=== PATIENT | female | born 1985 | race Caucasian/White ===

== ENCOUNTER 2016-08-18 15:25 | Emergency (ER) | payer MEDICAID, OTHER ==
[~2016-08-18] VITALS: Wt 70.0 kg
[2016-08-18 17:17] LABS: URINE BLOOD (Dip) POC Negative (NEGATIVE)
[2016-08-18] MEDS ORDERED: ACETAMINOPHEN/CODEINE #3 TAB PO ONE (17:30)
[2016-08-18] MEDS ORDERED: FAMOTIDINE 20 MG TAB PO ONE (17:30)
[2016-08-18] MEDS ORDERED: LIDOCAINE/MYLANTA 40 ML BTL PO ONE (17:30)
[2016-08-18 17:31] LABS: ADD UMIC YES; URINE BILIRUBIN (Dip) NEGATIVE (NEGATIVE); URINE BLOOD (Dip) NEGATIVE (NEGATIVE); URINE COLOR LT. YELLOW (YELLOW); URINE GLUCOSE (Dip) NEGATIVE (NEGATIVE); URINE KETONES (Dip) NEGATIVE (NEGATIVE); URINE LEUKOCYTE ESTERASE (Dip) TRACE (NEGATIVE); URINE NITRITE (Dip) NEGATIVE (NEGATIVE); URINE TOTAL PROTEIN (Dip) NEGATIVE (NEGATIVE); URINE UROBILINOGEN (Dip) 0.2 E.U./dL (0.1-1.0)
[2016-08-18 17:42] LABS: URINE RBCS 0-2 /HPF (0)
[2016-08-18 17:43] LABS: BACTERIA,URINE FEW
--- NOTE | 2016-08-18 18:19 | RADRPT ---
PROCEDURE: Abdominal Ultrasound (right upper quadrant). CLINICAL INDICATION: Abdominal pain TECHNIQUE: Multiple real-time longitudinal and transverse images of the right upper quadrant of th e abdomen were acquired utilizing a curved array transducer. Images were reviewed on a high-resoluti on PACS workstation. COMPARISON: None FINDINGS: The liver demonstrates increased echogenicity consistent with fatty infiltration. The liver is norm al in size. No focal masses are identified. There is no evidence of intra or extrahepatic ductal d ilatation. The common bile duct measures 2.7 mm in diameter. There is a nonshadowing gallstone vers us sludge ball identified within the gallbladder. There is no gallbladder wall thickening. No martha cholecystic fluid is identified The visualized portions of the pancreas are unremarkable with obscuration of the tail of the pancrea s. No free fluid is identified. There is no evidence of right hydronephrosis or renal calcification. The right kidney measures 10 p oint a cm in length. The visualized portions of the aorta and inferior vena cava are within normal limits. IMPRESSION: 1. Fatty infiltration of the liver. 2. Small nonshadowing gallstone versus sludge ball. No gallbladder wall thickening. 3. Otherwise unremarkable right upper quadrant ultrasound. RPTAT: HJBF .Carson Alexander MD, Date Time Electronically viewed and signed by .Carson Alexander MD, MD on 08/18/2016 18:19 .B/
[2016-08-18 18:25] LABS: HEMATOCRIT 37.2 % (37.0-47.0); HEMOGLOBIN 12.5 g/dl (12.0-16.0); MEAN CORPUSCULAR HEMOGLOBIN 29.4 pg (29.0-33.0); MEAN CORPUSCULAR HGB CONC 33.6 g/dl (32.0-37.0); MEAN CORPUSCULAR VOLUME 87.5 fl (82.0-101.0); MEAN PLATELET VOLUME 7.5 fl (7.4-10.4); PLATELET COUNT 310 10^3/UL (140-440); RED BLOOD COUNT 4.25 10^6/ul (4.20-5.40); RED CELL DISTRIBUTION WIDTH 12.7 % (11.5-14.5); UNCORRECTED WBC 13.3 10^3/ul (4.8-10.8); WHITE BLOOD COUNT 13.3 10^3/ul (4.8-10.8)
[2016-08-18 18:40] LABS: CONDITION 1; LH ANALYZER COMMENTS 1; SUSPECT 1
[2016-08-18 18:44] LABS: ALBUMIN 4.2 g/dl (3.3-4.9)
[2016-08-18 18:47] LABS: ALBUMIN/GLOBULIN RATIO 1.16; BILIRUBIN,INDIRECT 0.2 mg/dl (0-1.1); BILIRUBIN,TOTAL 0.2 mg/dl (0.2-1.3); CREATININE 0.54 mg/dl (0.44-1.00); TOTAL PROTEIN 7.8 g/dl (6.1-8.1)
[2016-08-18 18:48] LABS: CALCIUM 8.8 mg/dl (8.4-10.2)
[2016-08-18] MEDS ORDERED: ACET1TAB40 PO (18:55)
[2016-08-18] MEDS ORDERED: FAMO-18 PO (18:55)
--- NOTE | 2016-08-18 18:58 | ERD ---
ER Documentation Chief Complaint Date/Time DATE: 08/18/16 TIME: 18:56 Chief Complaint LOWER ABD PAIN FOR THE PAST DAY. NAUSEA NO VOMITNG HPI This 31-year-old female presents with epigastric abdominal pain for last day. History is significant for excision of presumed lipoma on her back 4 days ago. She is taking ibuprofen at home. The pain is in the epigastric area. She has nausea but no vomiting, no fevers, blood. She denies any lower abdominal pain. She has no urinary complaints. ROS All systems reviewed and are negative except as per history of present illness. Medications Home Meds Active Scripts Acetaminophen with Codeine (Acetaminophen-Cod #3 Tablet) 1 Each Tablet, 1 TAB PO Q6H Y for PAIN, #10 TAB Prov:BEN JIMENEZ MD 08/18/16 Famotidine* (Pepcid*) 20 Mg Tablet, 20 MG PO BID for 10 Days, #20 TAB Prov:BEN JIMENEZ MD 08/18/16 PMhx/Soc Medical and Surgical Hx: pt denies Medical Hx History of Surgery: Yes (BACK) Hx Alcohol Use: No Hx Substance Use: No Hx Tobacco Use: No Smoking Status: Never smoker Physical Exam Vitals Vital Signs Date Time Temp Pulse Resp B/P Pulse Ox O2 Delivery O2 Flow Rate FiO2 08/18/16 15:28 98.4 88 20 127/88 98 Physical Exam Const: [] Alert, aus-ogp-syvaflxmo. Head: Atraumatic Eyes: Normal Conjunctiva ENT: Normal External Ears, Nose and Mouth. Neck: Full range of motion..~ No meningismus. Resp: Clear to auscultation bilaterally Cardio: Regular rate and rhythm, no murmurs Abd: Soft, mild epigastric tenderness. No exquisite Domingo sign and no tenderness at McBurney's point. No rebound., non distended. Normal bowel sounds Skin: No petechiae or rashes Back: No midline or flank tenderness Ext: No cyanosis, or edema Neur: Awake and alert Psych: Normal Mood and Affect Result Diagram: 08/18/16 1800 08/18/16 1800 Results 24 hrs Laboratory Tests Test 08/18/16 17:15 08/18/16 17:18 08/18/16 18:00 Urine Bacteria FEW Urine Bilirubin NEGATIVE Urine Clarity CLEAR Urine Color LT. YELLOW Urine Epithelial Cells FEW Urine Glucose NEGATIVE% Urine Hemoglobin NEGATIVE Urine Ketones NEGATIVE Urine Leukocyte Esterase TRACE Urine Microscopic RBC 0-2/HPF Urine Microscopic WBC 5-10/HPF Urine Nitrite NEGATIVE Urine Specific [place] <=1.005 Urine Total Protein NEGATIVE Urine Urobilinogen 0.2 E.U./dL Urine pH 7.0 Bedside Urine Blood Negative Bedside Urine Glucose (UA) Negative Bedside Urine Ketones (LAB) Negative Bedside Urine Leukocyte Esterase (L Negative Bedside Urine Nitrite (LAB) Negative Bedside Urine Protein (LAB) 1+ Bedside Urine pH (LAB) 5.5 Alanine Aminotransferase (ALT/SGPT) 35IU/L Albumin 4.2g/dl Albumin/Globulin Ratio 1.16 Alkaline Phosphatase 66IU/L Anion Gap 15 Aspartate Amino Transf (AST/SGOT) 20IU/L Blood Urea Nitrogen 10mg/dl Calcium Level 8.8mg/dl Carbon Dioxide Level 30mmol/L Chloride Level 102mmol/L Creatinine 0.54mg/dl Direct Bilirubin 0.00mg/dl Globulin 3.60g/dl Glucose Level 87mg/dl Hematocrit 37.2% Hemoglobin 12.5g/dl Indirect Bilirubin 0.2mg/dl Lipase 112U/L Mean Corpuscular Hemoglobin 29.4pg Mean Corpuscular Hemoglobin Concent 33.6g/dl Mean Corpuscular Volume 87.5fl Mean Platelet Volume 7.5fl Platelet Count 63136^3/UL Potassium Level 4.0mmol/L Red Blood Count 4.2510^6/ul Red Cell Distribution Width 12.7% Sodium Level 143mmol/L Total Bilirubin 0.2mg/dl Total Protein 7.8g/dl White Blood Count 13.310^3/ul Current Medications Medications (Trade) Dose Ordered Sig/Kaz Route PRN Reason Start Time Stop Time Status Last Admin Dose Admin Miscellaneous Medication (Gi Cocktail (2)) 40 ml ONCE ONCE PO 08/18/16 17:30 08/18/16 17:31 DC 08/18/16 18:09 Famotidine (Pepcid) 20 mg ONCE ONCE PO 08/18/16 17:30 08/18/16 17:31 DC 08/18/16 18:09 Acetaminophen/ Codeine Phosphate (Tylenol No.3) 1 tab ONCE ONCE PO 08/18/16 17:30 08/18/16 17:31 DC 08/18/16 18:09 Procedures/MDM CBC shows a white blood cell count of 13. No evidence of anemia. CMP and lipase are normal. Urine is negative for infection, nitrites, glucose, hemoglobin. HCG is negative. Right upper quadrant ultrasound shows possible solitary gallstone without evidence of obstruction or cholecystitis. Patient was given Pepcid 20 mg by mouth GI cocktail. Patient had minimal tenderness on serial exam without rebound, Domingo sign or McBurney's point. Patient presents with epigastric abdominal pain with a history of taking NSAIDs for last 3 days. Believe she likely has NSAID gastritis. There is no evidence of cholecystitis , obstruction. She does have possibly a single solitary gallstone and may have colic symptoms are not definitely characteristic of biliary colic. There is no evidence to suggest appendicitis, UTI. Patient should follow-up with primary doctor this week return to the ER for new or worsening symptoms. Departure Diagnosis: Primary Impression: Gastritis Gastritis type: unspecified gastritis Chronicity: acute Gastritis bleeding : without bleeding Qualified Code: K29.00 - Acute gastritis without hemorrhage, unspecified gastritis type Additional Impression: Abdominal pain Abdominal location: epigastric Qualified Code: R10.13 - Epigastric pain Condition: Stable Patient Instructions: Abdominal Pain, Gallstones, Gastritis (Adult) Additional Instructions: tiene un aftab en vesicula. armando posiblemente gastritis. no sher ibuprofen. ramon y Examines normal hoy. Cheque otro vez con kang doctor primario en el proximo mitchell or regresa para mas o nueva simptomas. BEN JIMENEZ MD Aug 18, 2016 18:58
[2016-08-18 19:06] VITALS: BP 115/69; PULSE 69; RESP 16
[2016-08-18 19:45] LABS: EOSINOPHILS # 2.4 10^3/ul (0.0-0.5); LYMPHOCYTES # 2.9 10^3/ul (0.8-2.9); MONOCYTE # 0.3 10^3/ul (0.3-0.9); NEUTROPHIL # 7.7 10^3/ul (1.6-7.5)
[2016-08-18 19:46] LABS: PLATELET ESTIMATE PLT APPEAR ADEQUATE
== END 2016-08-18 19:07 | disposition home or self-care (01) ==
LOC: FTE 15:25
DX: K29.00 Acute gastritis without bleeding (principal)
CPT/HCPCS: 36415; 76705; 80053; 81001; 83690; 85025; Z7502; Z7610; 81003

== ENCOUNTER 2016-12-02 12:18 | Emergency (ER) | payer MEDICAID ==
[~2016-12-02] VITALS: Ht 160 cm; Wt 66.5 kg
[~2016-12-02 12:18] MED LIST: ACET1TAB40 PO; FAMO-18 PO
[2016-12-02 12:25] VITALS: Ht 160 cm; Wt 66.5 kg
[2016-12-02] MEDS ORDERED: ACETAMINOPHEN 500 MG TAB PO STA (12:45)
--- NOTE | 2016-12-02 13:18 | RADRPT ---
PROCEDURE: US OB. CLINICAL INDICATION: Fever, 12 weeks . TECHNIQUE: Transabdominal and transvaginal views of the pelvis are available for review. COMPARISON: No prior studies are available for comparison. FINDINGS: There is a single living intrauterine gestation with visualization of an intrauterine gestational sa c fetus with active cardiac activity at 185 beats per minute. The mean crown-rump length is 6.23 cm consistent with 05-nqas-7-day gestation. There are no abnormal fluid collections identified. Righ t ovary measures 3.5 x 1.7 x 2.3 cm. Left ovary measures 4.1 x 1.6 x 2.6 cm. There are no adnexal masses or free fluid seen in the cul-de-sac. IMPRESSION: 1. Single living intrauterine gestation with a mean gestational age by off of 12 weeks 4 days plus o r minus 8 days with an estimated date of delivery of 06/12/2017.. RPTAT: AACC Physician Josse Date Time Electronically viewed and signed by Physician Josse on 12/02/2016 13:17 /
[2016-12-02 13:38] LABS: ADD UMIC YES; URINE BILIRUBIN (Dip) NEGATIVE (NEGATIVE); URINE BLOOD (Dip) 2+ (NEGATIVE); URINE COLOR LT. YELLOW (YELLOW); URINE KETONES (Dip) NEGATIVE (NEGATIVE); URINE LEUKOCYTE ESTERASE (Dip) TRACE (NEGATIVE); URINE NITRITE (Dip) NEGATIVE (NEGATIVE); URINE TOTAL PROTEIN (Dip) NEGATIVE (NEGATIVE); URINE UROBILINOGEN (Dip) 0.2 E.U./dL (0.1-1.0)
[2016-12-02 14:26] LABS: BACTERIA,URINE FEW
[2016-12-02] MEDS ORDERED: PEN500 PO (14:30)
[2016-12-02] MEDS ORDERED: ACET500C5 PO (14:30)
--- NOTE | 2016-12-02 14:45 | ERD ---
ER Documentation Chief Complaint Date/Time DATE: 12/02/16 TIME: 14:40 Chief Complaint FEVER WITH CHILLS SINCE YESTERDAY 12 WEEKS HPI 31-year-old female who is approximately 12 weeks complaining of fever and chills since yesterday. Patient also reports body ache and headache. She has slight sore throat and decreased appetite. Denies cough or runny nose. Denies shortness of breath. Denies dysuria. Denies vaginal bleeding or pelvic. She did not take any medications at home. ROS All systems reviewed and are negative except as per history of present illness. Medications Home Meds Active Scripts Penicillin V Potassium* (Penicillin V K*) 500 Mg Tab, 500 MG PO BID for 10 Days , TAB Prov:GRIFFIN LEVY STEAM SHOVELMAN 12/02/16 Acetaminophen* (Tylophen*) 500 Mg Capsule, 1 CAP PO Q6H Y for PAIN AND OR ELEVATED TEMP, #20 CAP Prov:GRIFFIN LEVY STEAM SHOVELMAN 12/02/16 Acetaminophen with Codeine (Acetaminophen-Cod #3 Tablet) 1 Each Tablet, 1 TAB PO Q6H Y for PAIN, #10 TAB Prov:BEN JIMENEZ MD 08/18/16 Famotidine* (Pepcid*) 20 Mg Tablet, 20 MG PO BID for 10 Days, #20 TAB Prov:BEN JIMENEZ MD 08/18/16 Allergies Allergies: Coded Allergies: No Known Allergy (Unverified , 12/02/16) PMhx/Soc Medical and Surgical Hx: pt denies Medical Hx History of Surgery: Yes (BACK) Hx Alcohol Use: No Hx Substance Use: No Hx Tobacco Use: No Smoking Status: Never smoker Physical Exam Vitals Vital Signs Date Time Temp Pulse Resp B/P Pulse Ox O2 Delivery O2 Flow Rate FiO2 12/02/16 12:25 101.7 137 20 121/70 98 Physical Exam General: Well-developed, well-nourished, conscious and coherent, in no distress Skin: Warm and dry without rash, good texture and turgor Head: Normocephalic without evidence of trauma Eyes: Sclera and conjunctivae normal; pupils equal, round, and reactive to light; extraocular movements are intact Ears: Canals are patent. Tympanic membranes are clear Nose/Face: Without rhinorrhea Mouth/throat: Mucous membranes are moist. Posterior pharynx swollen and erythematous without exudate Neck: Supple without meningismus or adenopathy. Carotids are equal. Trachea midline. No bruits or JVD Chest: Normal AP diameter. Good expansion without retractions. Nontender. Lungs are clear to auscultate bilaterally with good tidal volume Heart: Regular rate and rhythm. No murmur, rub, or gallops heard Abdomen: Soft and nontender without masses, guarding, or rebound. Bowel sounds are active. No hepatosplenomegaly Back: Without spinal or CVA tenderness Pelvis: Nontender to palpation and stable to compression Extremities: Full range of motion. Good strength bilaterally. No clubbing, cyanosis, or edema. Peripheral pulses are intact. Sensation intact Neuro: Alert and oriented 4, GCS 15. Cranial nerves II-XII intact. Motor and sensory exams nonfocal. Moves all extremities. Speech clear. Gait normal Results 24 hrs Laboratory Tests Test 12/02/16 13:10 Urine Color LT. YELLOW Urine Clarity CLEAR Urine pH 5.5 Urine Specific [place] <=1.005 Urine Ketones NEGATIVE Urine Nitrite NEGATIVE Urine Bilirubin NEGATIVE Urine Urobilinogen 0.2 E.U./dL Urine Leukocyte Esterase TRACE Urine Microscopic RBC 2-5/HPF Urine Microscopic WBC 2-5/HPF Urine Epithelial Cells MODERATE Urine Bacteria FEW Urine Hemoglobin 2+ Urine Glucose 0.5%% Urine Total Protein NEGATIVE Current Medications Medications (Trade) Dose Ordered Sig/Kaz Route PRN Reason Start Time Stop Time Status Last Admin Dose Admin Acetaminophen (Tylenol Tab) 1,000 mg ONCE STAT PO 12/02/16 12:45 12/02/16 12:48 DC 12/02/16 12:49 PROCEDURE: US OB. CLINICAL INDICATION: Fever, 12 weeks . TECHNIQUE: Transabdominal and transvaginal views of the pelvis are available for review. COMPARISON: No prior studies are available for comparison. FINDINGS: There is a single living intrauterine gestation with visualization of an intrauterine gestational sac fetus with active cardiac activity at 185 beats per minute. The mean crown-rump length is 6.23 cm consistent with 12-week-4- day gestation. There are no abnormal fluid collections identified. Right ovary measures 3.5 x 1.7 x 2.3 cm. Left ovary measures 4.1 x 1.6 x 2.6 cm. There are no adnexal masses or free fluid seen in the cul-de-sac. IMPRESSION: 1. Single living intrauterine gestation with a mean gestational age by off of 12 weeks 4 days plus or minus 8 days with an estimated date of delivery of 06/12.. RPTAT: AACC Benny Blanco Physician Date Time Electronically viewed and signed by Benny Blanco Physician on 12/02/2016 13: 17 JH/ CC: GRIFFIN LEVY STEAM SHOVELMAN Procedures/MDM 31-year-old female presented ED with fever 2 days. Tylenol given to the patient in the ED for fever reduction. Patient reports feeling better after Tylenol. Rapid strep test is positive. Patient symptoms and exam findings are consistent with strep pharyngitis. UA showed trace leukocyte, negative nitrite, 2+ blood, and positive glucose. Since patient does not have any dysuria, I opted not to treat her for UTI at this time. Patient is concerned about her , OB ultrasound was obtained. OB ultrasound showed normal intrauterine at 12 weeks 4 days, normal cardiac activity at 1 85 bpm. Patient appears well, stable for discharge and outpatient management. Medical decision making shared with patient and family. Education provided to patient and family. Patient and family expressed understanding of the plan. Medications on discharge: Tylenol, Pen-Vee K. Follow-up: Primary care provider in 2-3 days or return to ED if worse. Departure Diagnosis: Primary Impression: Strep pharyngitis Condition: Good Patient Instructions: Pharyngitis, Strep (Confirmed) Referrals: [place] [address] [facility] [address] [place] [id number]AB[address] [facility] [address] [place] [address] DR. PICKARDFORMERLY [facility] [address] [place], [place] [id number] DR PRADO [facility] [address] [facility], [address], [place] [address] DR OLIVAS-DECALN WARD [address] [facility], [place] [address] [address] [place] [address] [place] [address] [facility] [id number] - LIDIA J[address] [facility] [address] [address] [place], JAMIL [address] [facility], [facility] [address] [address] [place]ODES, MARIA [place] [address] [place] [address] [facility] () Usted se osborne hecho un examen mdico de control que le indica que no est en kirt condicin que requiera tratamiento urgente en el Departamento de Emergencia. Un estudio ms profundo y el tratamiento de kang condicin pueden esperar sin ningn riesgo hasta que usted sea atendida/o en el consultorio de kang mdico o kirt cl vero. Es responsabilidad suya arreglar kirt som para el seguimiento del renetta. MANEJO DE CONDICIONES NO URGENTES EN EL FUTURO 1) Si usted tiene un mdico de atencin primaria: Usted debera llamar a kang mdico de atencin primaria antes de venir al departamento de emergencia. Despus de las horas de consultorio, kang doctor o kang asociado/a est disponible por telfono. El mdico o enfermero de jasmyne en el servicio telefnico puede asesorarle por kimberly medio para atender el problema, o renetta contrario se puede programar kirt som. 2) Si usted no tiene un mdico de atencin primaria: Llame al mdico o clnica de referencia que aparece abajo andry las horas de consultorio para hacer kirt som para que le vean. CLINICAS: [facility] [phone] [facility] [phone] [facility] [phone] [place] [address] [phone] [place] [address] [phone] [place] [id number] [phone] Additional Instructions: Llame al doctor MAANA y crystal kirt SOM PARA DENTRO DE 2-3 HERNADEZ.Dgale a la secretaria que nosotros le instruimos hacer esta som.Avise o llame si kang condicin se empeora antes de la som. Regresa aqui si peor o no mejor. GRIFFIN LEVY NP December 02, 2016 14:45
== END 2016-12-02 14:46 | disposition home or self-care (01) ==
LOC: FTE 12:18
DX: O99.511 Diseases of the respiratory system complicating pregnancy, first trimester (principal); R50.9 Fever, unspecified; J02.0 Streptococcal pharyngitis; Z3A.12 12 weeks gestation of pregnancy
CPT/HCPCS: 76801; 81001; 87880; Z7502; Z7610; 81003

== ENCOUNTER 2017-06-11 08:26 | Inpatient (IN) | payer MEDICAID ==
[~2017-06-11] VITALS: Ht 154.9 cm; Wt 75.3 kg
[~2017-06-11 08:26] MED LIST changes: +ACET500C5 PO; -FAMO-18 PO; +FAMO-96 PO; +PENI500T PO
[2017-06-11] MEDS ORDERED: PREN-93 PO (08:35)
[2017-06-11 08:43] VITALS: BP 126/79; PULSE 96; RESP 18
[2017-06-11 08:44] VITALS: Ht 154.9 cm; Wt 75.3 kg
--- NOTE | 2017-06-11 08:59 | TRIAGE ---
OB Triage Datetime Report Generated by CPN: 06/11/2017 08:59 Datetime: 06/11/2017 08:47 Vaginal Exam Dilatation (cms): 4.0 Effacement (%): 80 Station: -2 Exam By: josiah Vaginal Bleeding: Normal Show Cervix, Consistency: Soft Cervix, Position: Midposition Datetime: 06/11/2017 08:33 Assessment Type: Triage Maternal Assessment Level of Consciousness: Fully Conscious DTR's/Clonus: DTRs 2+; No Clonus Headache: Denies Blurred Vision: No Respiratory Effort: Unlabored; Regular Rhythm; Equal Expansion Breath Sounds, Left: Clear and Equal Breath Sounds, Right: Clear and Equal Nausea/Vomiting: Denies RUQ Epigastric Pain: Denies Lower Extremities Edema: None Degree: None Upper Extremities Edema: None Degree: None Facial Edema: None Fall Risk Assessment History of Falling: (0) No Secondary Diagnosis: (0) No Ambulatory Aid: (0) Bedrest/Nurse Assist IV Therapy: (0) No Gait: (0) Normal/Bedrest/Immobile Mental Status: (0) Oriented to Own Ability Fall Score: 0 Fall Risk Score Definition: No Risk: No action required Datetime: 06/11/2017 08:32 Time of Arrival: 06/11/2017 08:15 EGA: 39.5 Arrived By: Ambulatory Arrived From: Home Chief Complaint: PT HERE C/O UC'S SINCE 2300 LAST NIGHT Movement: Present Contractions: Irregular Rupture of Membranes: Denies Vaginal Bleeding: None Vaginal Discharge: Denies Recent Sexual Intercouse: Denies Abdominal Trauma: Not Applicable Patient Complaints: Contractions; Cramping; Back Pain Time Provider Notified: 06/11/2017 08:53 Provider Notified: ESHAGHIAN Initial Plan: EFM/SVE Datetime: 06/11/2017 08:30 Labor Evaluation Monitor Mode: External Heart Rate Monitor Mode: External US
[2017-06-11] MEDS ORDERED: LACTATED RINGER'S 1,000 ML IV PRN (10:06)
[2017-06-11] MEDS: LACTATED RINGER'S 1,000 ML IV SCH ×3 (10:16→19:03)
[2017-06-11] MEDS ORDERED: OXYTOCIN 30 UNITS/LR 500 ML IV PRN (10:30)
[2017-06-11] MEDS ORDERED: METHYLERGONOVINE 0.2 MG INJ IM PRN (10:30)
[2017-06-11] MEDS ORDERED: CARBOPROST 250 MCG INJ IM PRN (10:30)
[2017-06-11] MEDS ORDERED: OXYTOCIN 30 UNITS/LR 500 ML IV SCH ×3 (10:30→21:30)
[2017-06-11] MEDS ORDERED: IBUPROFEN 600 MG TAB PO PRN (10:30)
[2017-06-11] MEDS ORDERED: AMPICILLIN 2 GM/NS (PMX) 100 ML IV ONE (10:30)
[2017-06-11] MEDS ORDERED: LIDOCAINE 1% (MPF) 30 ML INJ INJ PRN (10:30)
[2017-06-11] MEDS ORDERED: MISOPROSTOL 200 MCG TAB PR PRN (10:30)
[2017-06-11] MEDS ORDERED: BUTORPHANOL 2 MG INJ IV PRN (10:30)
[2017-06-11 10:31] LABS: BASOPHILS % 0.2 % (0.0-2.0); EOSINOPHILS # 0.1 10^3/ul (0.0-0.5); EOSINOPHILS % 0.7 % (0.0-7.0); HEMATOCRIT 35.8 % (37.0-47.0); HEMOGLOBIN 11.8 g/dl (12.0-16.0); LYMPHOCYTES # 1.6 10^3/ul (0.8-2.9); MEAN CORPUSCULAR HEMOGLOBIN 28.6 pg (29.0-33.0); MEAN CORPUSCULAR VOLUME 86.7 fl (82.0-101.0); MEAN PLATELET VOLUME 11.8 fl (7.4-10.4); MONOCYTE # 0.7 10^3/ul (0.3-0.9); MONOCYTES % 7.4 % (0.0-11.0); NEUTROPHIL # 6.8 10^3/ul (1.6-7.5); PLATELET COUNT 202 10^3/UL (140-415); RED BLOOD COUNT 4.13 10^6/ul (4.20-5.40); RED CELL DISTRIBUTION WIDTH 15.8 % (11.5-14.5); WHITE BLOOD COUNT 9.2 10^3/ul (4.8-10.8)
[2017-06-11] MEDS ORDERED: FENTAnyl 2MCG/ML-ROPIV 0.2% 100 ML ONE (11:03)
[2017-06-11 11:18] LABS: INR 1.05; PARTIAL THROMBOPLASTIN TIME 26.4 Sec (25.0-35.0); PROTIME 13.7 Sec (12.2-14.2); PT RATIO 1.1
[2017-06-11] MEDS ORDERED: NALOXONE (0.4 MG/ML) INJ IV PRN (11:30)
[2017-06-11] MEDS ORDERED: ZOLPIDEM 5 MG TAB PO PRN (11:30)
[2017-06-11] MEDS ORDERED: ONDANSETRON 4 MG INJ IV PRN (11:30)
[2017-06-11] MEDS ORDERED: DIPHENHYDRAMINE 50 MG INJ IV PRN (11:30)
[2017-06-11] MEDS ORDERED: KETOROLAC 30 MG INJ IV PRN (11:30)
[2017-06-11] MEDS ORDERED: AMPICILLIN 1 GM/NS (PMX) 50 ML IV SCH (13:00)
--- NOTE | 2017-06-11 17:04 | RADRPT ---
PROCEDURE: US OB. CLINICAL INDICATION: Size and dates , labor pain TECHNIQUE: Multiple sonographic images of the pelvis and gravid uterus were obtained. The images were reviewed on a PACS workstation. COMPARISON: No prior studies are available for comparison. FINDINGS: There is a single viable intrauterine gestation. Cardiac activity is present with 129 beats per min melani. There is a vertex presentation. The placenta is fundal left. There is no evidence for an abruption or placenta previa. Measurements were made in order to determine age. The results are as follows: BPD =9.4 cm HC =33.8 cm AC =37.3 cm FL =7.7 cm Estimated gestational age of approximately 39 weeks and 3 days based on ultrasound measurements. Clinical age: 39 weeks and 5 days. The estimated date of delivery is 06/15/17, based on ultrasound measurements. The EFW = 3998 g, 82.9%, based on LMP age. There is moderate bilateral scrotal hydrocele. RPTAT: AA IMPRESSION: Single viable intrauterine gestation of approximately 39 weeks and 3 days based on ultrasound measu rements. Moderate bilateral scrotal hydrocele. .Madi Swift MD, Date Time Electronically viewed and signed by .Madi Swift MD, on 06/11/2017 17:03 .S/
[2017-06-11] MEDS: FENTAnyl 2MCG/ML-ROPIV 0.2% 100 ML BAG EPI SCH (20:27)
[2017-06-12] MEDS: FENTAnyl 2MCG/ML-ROPIV 0.2% 100 ML BAG EPI SCH (02:55)
[2017-06-12] MEDS ORDERED: LACTATED RINGER'S 1,000 ML IV SCH ×2 (03:06→04:25)
[2017-06-12] MEDS ORDERED: OXYTOCIN 30 UNITS/LR 500 ML IV PRN ×2 (03:30→04:30)
[2017-06-12] MEDS ORDERED: CARBOPROST 250 MCG INJ IM PRN ×2 (03:30→04:30)
[2017-06-12] MEDS ORDERED: METHYLERGONOVINE 0.2 MG INJ IM PRN ×2 (03:30→04:30)
[2017-06-12] MEDS ORDERED: OXYTOCIN 30 UNITS/LR 500 ML IV SCH (03:30)
[2017-06-12] MEDS ORDERED: CEFAZOLIN 2 GM/50 ML (PMX) 50 ML IV SCH ×2 (03:30→04:30)
[2017-06-12] MEDS ORDERED: MISOPROSTOL 200 MCG TAB PR PRN ×2 (03:30→04:30)
[2017-06-12] MEDS ORDERED: FENTAnyl 50 MCG/ML VIAL ONE (03:32)
[2017-06-12] MEDS ORDERED: PHENYLephrine (100 MCG/ML) 5ML SYG ONE ×2 (03:42→04:09)
[2017-06-12] MEDS ORDERED: LIDOCAINE 2%/EPI 30 ML INJ ONE (03:42)
[2017-06-12] MEDS ORDERED: OXYTOCIN 10 UNIT INJ ONE ×2 (03:55→04:21)
[2017-06-12] MEDS ORDERED: ZOLPIDEM 5 MG TAB PO PRN (04:00)
[2017-06-12] MEDS ORDERED: morphine 4 MG/ML VIAL IV PRN (04:00)
[2017-06-12] MEDS ORDERED: NALOXONE (0.4 MG/ML) INJ IV PRN (04:00)
[2017-06-12] MEDS ORDERED: ONDANSETRON 4 MG INJ IV PRN (04:00)
[2017-06-12] MEDS ORDERED: morphine 2 MG INJ IV PRN (04:00)
[2017-06-12] MEDS ORDERED: DIPHENHYDRAMINE 50 MG INJ IV PRN (04:00)
[2017-06-12] MEDS ORDERED: DEXAMETHASONE 4 MG/ML 1 ML INJ ONE (04:01)
[2017-06-12] MEDS ORDERED: morphine SULFATE/PF (10 MG/10 ML) INJ ONE (04:03)
--- NOTE | 2017-06-12 04:11 | PREOPHP ---
DATE OF ADMISSION: 06/11/2017 HISTORY OF PRESENT ILLNESS: Ms. Liseth Davis is a 31-year-old 1, para 0, EDC 06/13/2017, intrauterine at 39 weeks and 5 days gestational age, presented to triage yesterday hardy lopes in labor. She progressed to 7 cm dilated, where she was started on Pitocin augmentation. However , she has been 8 cm for more than 4 hours with appropriate labor augmentation. Her EFW is approxima tely 4000 grams. After explaining the risks, benefits and alternatives, the patient agrees for cesa rean delivery. PAST MEDICAL HISTORY: None. MEDICATIONS: vitamins. PAST SURGICAL HISTORY: None. OBSTETRIC HISTORY: Primigravid. GYNECOLOGIC HISTORY: 14, regular 3 to 4 days. Denies any sexually transmitted diseases. Sexually active with 1 partner. SOCIAL HISTORY: Denies any smoking, drugs or alcohol. FAMILY HISTORY: None. REVIEW OF SYSTEMS: All within normal except history of present illness. PHYSICAL EXAMINATION: HEENT: Within normal. LUNGS: CTA bilateral. CARDIOVASCULAR: S1, S2, regular rhythm. ABDOMEN: Gravid, nontender. Negative CVA bilateral. EXTREMITIES: Negative edema. No calf tenderness. PELVIC: Vaginal exam 8 cm dilated, 100% effaced, 0 station. heart tracing category 1. Tocom eter regular contractions. ASSESSMENT: A 31-year-old 1, para 0, intrauterine at 39 weeks and 5 days gestatio nal age, arrest in dilatation. PLAN: Consent for a primary . Risks, benefits and alternatives explained. All questions were answered. Dictated By: ELIZABTEH LAGOS/CR Conf#: [id number] DID#: [id number]
--- NOTE | 2017-06-12 04:25 | OPPN ---
Date/Time of Note Date/Time of Note DATE: 06/12/17 TIME: 04:22 Operative Report Planned Procedure Free Text/Dictation 31-year-old 1, para 0, intrauterine at 39 weeks and 5 days gestational age, in labor, arrest in dilatation. Procedure date Jun 12, 2017 Procedure(s) primary low transverse CD Performed by see signature line Convertible Sofa Bedspring Tester Dr Peters Anesthesiologist: ART WHITAKER Pre-procedure diagnosis 31-year-old 1, para 0, intrauterine at 39 weeks and 5 days gestational age, in labor, arrest in dilatation. Anesthesia Type: epidural Post-Procedure Post-procedure diagnosis same Findings Live Baby [m], Apgars [8] and [9], weight [8lbs 7 oz], position [vtx], [] presentation []cord. Estimated Blood Loss: 500 - 600 mls Specimen(s) none Grafts/Implant(s) none Complication(s) none ELIZABETH PATHAK MD Jun 12, 2017 04:25
[2017-06-12] MEDS ORDERED: LANOLIN 7 GM TUBE TOP PRN (04:30)
[2017-06-12] MEDS ORDERED: OXYCODONE/ACETAMINOPHEN (5/325) TAB PO PRN ×2 (04:30)
[2017-06-12] MEDS: KETOROLAC 30 MG INJ IV PRN (05:06)
[2017-06-12] MEDS ORDERED: OXYTOCIN 30 UNITS/LR 500 ML BAG IV ONE (07:00)
[2017-06-12] MEDS ORDERED: ACETAMINOPHEN 325 MG TAB PO PRN (07:00)
[2017-06-12] MEDS: SENNA/DOCUSATE NA (8.6MG/50MG) TAB PO SCH ×2 (08:57→21:18)
[2017-06-12 10:00] VITALS: BP 123/75; PULSE 62; RESP 20
--- NOTE | 2017-06-12 10:06 | OPR ---
DATE OF OPERATION: 06/12/2017 PRIMARY DIAGNOSIS: A 31-year-old 1, para 0, intrauterine at term, in labor, arres t in dilatation. POSTOPERATIVE DIAGNOSIS: A 31-year-old 1, para 0, intrauterine at term, in labor, arrest in dilatation. PROCEDURE PERFORMED: Primary low transverse delivery via Pfannenstiel incision. SURGEON: Dr. Ventura. PRIME MINISTER: Dr. West. ANESTHESIA: Epidural. COMPLICATIONS: None. ESTIMATED BLOOD LOSS: 500 mL. FINDINGS: A viable female in cephalic presentation, Apgars 8 and 9 respectively at one and five minutes, weight 8 pounds 7 ounces. Normal uterus, tubes and ovaries. DESCRIPTION OF PROCEDURE: After explaining the risks, benefits and alternatives to the patient, con sent signed in the chart, the patient was taken to the operating room where epidural anesthesia was found to be adequate. She was then prepared and draped in normal sterile fashion in dorsal supine p osition with a leftward tilt. A Pfannenstiel skin incision was then made with a scalpel and carried to the underlying layer of fascia. The fascia was incised in the midline and the incision was exte nded laterally with Davis scissors. The superior aspect of the fascial incision was grasped with cur lacho clamps, elevated and the underlying rectus muscles dissected off bluntly. Attention was then tu rned to the inferior aspect of the incision which in similar fashion was grasped, tented up with cur lacho clamps and the rectus muscles dissected off bluntly. The rectus muscles were in midli ne, peritoneum identified, tented up and entered sharply with Metzenbaum scissors. The peritoneal i ncision was extended superiorly and inferiorly with good visualization of the bladder. The bladder blade was then inserted and the vesicouterine peritoneum identified, grasped with pickups and entere d sharply with Metzenbaum scissors. This incision was extended laterally and a bladder flap created digitally. The bladder blade was then reinserted and the lower segment incised in transverse fashi on with a scalpel. The uterine incision was extended laterally. The bladder blade was removed and the 's head delivered atraumatically. The nose and mouth were suctioned and cord clamped and cut. The was handed off to awaiting spinning room worker. The placenta was then removed. The uteru s was exteriorized and cleared of all clots and debris. The uterine incision was repaired with 1-0 chromic in a running locked fashion. A second layer of same suture was used for imbrication and obt ained excellent hemostasis. The uterus was returned to the abdomen. The gutters were cleared of al l clots. The peritoneum and rectus abdominis muscles were reapproximated with 3-0 Vicryl in an inte rrupted fashion. The fascia was reapproximated with 0 Vicryl in a running fashion. The subcutaneou s tissue was reapproximated with 2-0 plain gut in a running fashion. The skin was closed with absor bable gavin. The patient tolerated the procedure well. Sponge, lap and needle counts correct. T he patient was taken to recovery room in stable condition. Dictated By: ELIZABETH LAGOS/CR Conf#: [id number] DID#: [id number] CC: LIDIA WEST MD;*End*
[2017-06-12] MEDS: LACTATED RINGER'S 1,000 ML IV SCH ×2 (10:07→18:08)
[2017-06-12] MEDS: CEFAZOLIN 2 GM/50 ML (PMX) 50 ML IVPB SCH ×2 (11:53→19:55)
[2017-06-12 12:11] VITALS: BP 119/73; PULSE 64; RESP 16
[2017-06-12 16:00] VITALS: BP 113/77; PULSE 76; RESP 14
[2017-06-12 19:45] VITALS: BP 104/58; PULSE 86; RESP 18
[2017-06-13 00:45] VITALS: BP 109/62; PULSE 76; RESP 18
[2017-06-13] MEDS: KETOROLAC 30 MG INJ IV PRN (01:18)
[2017-06-13] MEDS: CEFAZOLIN 2 GM/50 ML (PMX) 50 ML IVPB SCH (03:30)
[2017-06-13] MEDS ORDERED: OXYCODONE/ACETAMINOPHEN (5/325) TAB PO PRN ×2 (03:55)
[2017-06-13 04:58] VITALS: BP 92/50; PULSE 90; RESP 18
[2017-06-13] MEDS: LACTATED RINGER'S 1,000 ML IV SCH (05:58)
[2017-06-13] MEDS: IBUPROFEN 600 MG TAB PO SCH ×3 (05:59→18:07)
[2017-06-13 08:10] VITALS: BP 106/78; PULSE 93; RESP 14
[2017-06-13] MEDS: SENNA/DOCUSATE NA (8.6MG/50MG) TAB PO SCH ×2 (09:00→21:28)
[2017-06-13] MEDS ORDERED: INFLUENZA VIRUS VACCINE 0.5 ML (DISPENSING) IM* ONE (09:00)
[2017-06-13 09:24] LABS: BASOPHILS % 0.1 % (0.0-2.0); EOSINOPHILS # 0.2 10^3/ul (0.0-0.5); EOSINOPHILS % 1.1 % (0.0-7.0); HEMATOCRIT 28.9 % (37.0-47.0); HEMOGLOBIN 9.4 g/dl (12.0-16.0); LYMPHOCYTES # 1.4 10^3/ul (0.8-2.9); LYMPHOCYTES % 10.9 % (15.0-51.0); MEAN CORPUSCULAR HEMOGLOBIN 28.7 pg (29.0-33.0); MEAN CORPUSCULAR HGB CONC 32.5 g/dl (32.0-37.0); MEAN CORPUSCULAR VOLUME 88.4 fl (82.0-101.0); MEAN PLATELET VOLUME 10.7 fl (7.4-10.4); MONOCYTE # 0.7 10^3/ul (0.3-0.9); MONOCYTES % 5.1 % (0.0-11.0); NEUTROPHIL # 10.9 10^3/ul (1.6-7.5); PLATELET COUNT 194 10^3/UL (140-415); RED BLOOD COUNT 3.27 10^6/ul (4.20-5.40); RED CELL DISTRIBUTION WIDTH 15.9 % (11.5-14.5); WHITE BLOOD COUNT 13.2 10^3/ul (4.8-10.8)
--- NOTE | 2017-06-13 10:33 | PN ---
Date/Time of Note Date/Time of Note DATE: 06/13/17 TIME: 10:30 OB Subjective Subjective Subjective Post C section day 1 Doing Well Afebrile Ambulatory Chest Clear Breasts are soft , Nipples are intact Abdomen is soft Fundus is firm Moderate amount of lochia Incision is clean ,No evidence of infection No calf tenderness No ankle edema Laboratory Tests Test 06/13/17 09:01 White Blood Count 13.210^3/ul Red Blood Count 3.2710^6/ul Hemoglobin 9.4g/dl Hematocrit 28.9% Mean Corpuscular Volume 88.4fl Mean Corpuscular Hemoglobin 28.7pg Mean Corpuscular Hemoglobin Concent 32.5g/dl Red Cell Distribution Width 15.9% Platelet Count 53832^3/UL Mean Platelet Volume 10.7fl Neutrophils % 82.0% Lymphocytes % 10.9% Monocytes % 5.1% Eosinophils % 1.1% Basophils % 0.1% Nucleated Red Blood Cells % 0.0/100WBC Neutrophils # 10.910^3/ul Lymphocytes # 1.410^3/ul Monocytes # 0.710^3/ul Eosinophils # 0.210^3/ul Basophils # 0.010^3/ul Nucleated Red Blood Cells # 0.010^3/ul Current Medications Medications (Trade) Dose Ordered Sig/Kaz Route PRN Reason Start Time Stop Time Status Last Admin Dose Admin Lactated Ringer's 1,000 ml @ 125 mls/hr Q8H IV 06/11/17 10:06 06/12/17 08:41 DC 06/11/17 19:03 Ampicillin 100 ml @ 100 mls/hr ONCE ONCE IV 06/11/17 10:30 06/11/17 10:30 DC Ampicillin (Ampicillin 1 Gm/ NS (Pmx)) 50 ml @ 100 mls/hr Q4H IV 06/11/17 13:00 06/11/17 13:00 DC Butorphanol Tartrate (Stadol) 2 mg Q2H PRN IV PAIN 06/11/17 10:30 06/12/17 08:41 DC Lidocaine 30 ml 30 ml ONCE PRN INJ EPISIOTOMY/TEARING 06/11/17 10:30 06/12/17 08:41 DC Oxytocin/Lactated Ringer's 500 ml @ 125 mls/hr ONCE -MAY REPEAT X1 IV 06/11/17 10:30 Oxytocin/Lactated Ringer's 500 ml @ 125 mls/hr ONCE IV 06/11/17 10:30 06/12/17 08:41 DC 06/12/17 05:21 Ibuprofen 600 mg 600 mg ONCE PRN PO Mild Pain (Pain Score 1-3) 06/11/17 10:30 06/12/17 08:41 DC Lactated Ringer's 1,000 ml @ 2,000 mls/hr Q30M PRN IV PRE-EPIDURAL BOLUS 06/11/17 10:06 06/12/17 08:41 DC 06/12/17 03:11 Oxytocin/Lactated Ringer's 500 ml @ 0 mls/hr ONCE PRN IV For Hemorrhage Management 06/11/17 10:30 06/12/17 08:41 DC Methylergonovine Maleate (Methergine) 0.2 mg ONCE PRN IM VAGINAL BLEEDING 06/11/17 10:30 06/12/17 04:34 DC Carboprost Tromethamine (Hemabate) 250 mcg ONCE PRN IM VAGINAL BLEEDING 06/11/17 10:30 06/12/17 04:33 DC Misoprostol 1000 mcg 1,000 mcg ONCE PRN [place] VAGINAL BLEEDING 06/11/17 10:30 06/12/17 04:34 DC Fentanyl/ Ropivacaine 100 ml @ ud STK-MED ONCE .ROUTE 06/11/17 11:03 06/11/17 11:04 DC Naloxone HCl (Narcan) 0.1 mg Q2M PRN IV FOR RESP RATE 8 OR LESS 06/11/17 11:30 06/12/17 04:39 DC Ketorolac Tromethamine (Toradol) 30 mg Q6H PRN IV PAIN 06/11/17 11:30 06/12/17 04:30 DC Diphenhydramine HCl (Benadryl) 25 mg Q6H PRN IV ITCHING 06/11/17 11:30 06/12/17 08:41 DC Ondansetron HCl (Zofran Inj) 4 mg Q6H PRN IV NAUSEA AND/OR VOMITING 06/11/17 11:30 06/12/17 04:39 DC Zolpidem Tartrate (Ambien) 5 mg HS MAY REPEAT X 1 PRN PO INSOMNIA 06/11/17 11:30 06/12/17 04:39 DC Fentanyl/ Ropivacaine 100 ml 100 ml EPIDURAL INFUSION EPI 06/11/17 11:30 06/12/17 08:41 DC 06/12/17 02:55 Oxytocin/Lactated Ringer's 500 ml @ 0 mls/hr Q0M IV 06/11/17 21:30 06/12/17 08:41 DC 06/11/17 21:11 Lactated Ringer's 1,000 ml @ 125 mls/hr Q8H IV 06/12/17 03:06 06/12/17 08:41 DC Cefazolin Sodium/ Dextrose 50 ml @ 100 mls/hr ONCE IV 06/12/17 03:30 06/12/17 04:33 DC Oxytocin/Lactated Ringer's 500 ml @ 125 mls/hr ONCE IV 06/12/17 03:30 06/12/17 08:41 DC Oxytocin/Lactated Ringer's 500 ml @ 0 mls/hr ONCE PRN IV For Hemorrhage Management 06/12/17 03:30 06/12/17 08:41 DC Methylergonovine Maleate (Methergine) 0.2 mg ONCE PRN IM VAGINAL BLEEDING 06/12/17 03:30 06/12/17 04:34 DC Carboprost Tromethamine (Hemabate) 250 mcg ONCE PRN IM VAGINAL BLEEDING 06/12/17 03:30 06/12/17 04:33 DC Misoprostol (Cytotec) 1,000 mcg ONCE PRN [place] VAGINAL BLEEDING 06/12/17 03:30 06/12/17 04:34 DC Fentanyl (Sublimaze) 100 mcg STK-MED ONCE .ROUTE 06/12/17 03:32 06/12/17 03:33 DC Naloxone HCl (Narcan) 0.1 mg Q2M PRN IV FOR RESP RATE 8 OR LESS 06/12/17 04:00 06/13/17 03:54 DC Ketorolac Tromethamine (Toradol) 30 mg Q6H PRN IV PAIN 06/12/17 04:00 06/13/17 03:54 DC 06/13/17 01:18 Morphine Sulfate (morphine) 2 mg Q3H PRN IV PAIN LEVEL 1-5 06/12/17 04:00 06/13/17 03:54 DC Morphine Sulfate (morphine) 4 mg Q3H PRN IV PAIN LEVEL 6-10 06/12/17 04:00 06/13/17 03:54 DC Diphenhydramine HCl (Benadryl) 25 mg Q6H PRN IV ITCHING 06/12/17 04:00 06/13/17 03:54 DC Ondansetron HCl (Zofran Inj) 4 mg Q6H PRN IV NAUSEA AND/OR VOMITING 06/12/17 04:00 06/13/17 03:54 DC Zolpidem Tartrate (Ambien) 5 mg HS MAY REPEAT X 1 PRN PO INSOMNIA 06/12/17 04:00 06/13/17 03:54 DC Miscellaneous Information (* Miscellaneous Pharmacy Order) Duramorph: 4 mg Epidu... GIVEN ONCE XX 06/12/17 03:55 06/12/17 03:56 DC Lidocaine/ Epinephrine (Xylocaine 2%/ Epi) 30 ml STK-MED ONCE .ROUTE 06/12/17 03:42 06/12/17 03:43 DC Phenylephrine HCl (Prosper-Synephrine Inj Syg) 500 mcg STK-MED ONCE .ROUTE 06/12/17 03:42 06/12/17 03:43 DC Oxytocin (Oxytocin) 10 units STK-MED ONCE .ROUTE 06/12/17 03:55 06/12/17 03:56 DC Dexamethasone (Decadron) 4 mg STK-MED ONCE .ROUTE 06/12/17 04:01 06/12/17 04:02 DC Morphine Sulfate (Duramorph) 10 mg STK-MED ONCE .ROUTE 06/12/17 04:03 06/12/17 04:04 DC Phenylephrine HCl (Prosper-Synephrine Inj Syg) 500 mcg STK-MED ONCE .ROUTE 06/12/17 04:09 06/12/17 04:10 DC Oxytocin 10 units 10 units STK-MED ONCE .ROUTE 06/12/17 04:21 06/12/17 04:22 DC Lactated Ringer's 1,000 ml @ 125 mls/hr Q8H IV 06/12/17 04:25 06/12/17 04:30 DC Cefazolin Sodium/ Dextrose (Ancef 2 Gm/50 ml (Pmx)) 50 ml @ 100 mls/hr Q8H IV 06/12/17 04:30 06/12/17 04:37 DC Oxycodone/ Acetaminophen (Percocet (5/ 325)) 1 tab Q4H PRN PO PAIN LEVEL 4-6 06/12/17 04:30 06/12/17 04:35 DC Oxycodone/ Acetaminophen (Percocet (5/ 325)) 2 tab Q4H PRN PO PAIN LEVEL 7-10 06/12/17 04:30 06/12/17 04:35 DC Ibuprofen (Motrin) 600 mg Q6 PO 06/13/17 06:00 Simethicone (Mylicon) 160 mg Q8H PRN PO DISTENSION/GAS/BLOATING 06/12/17 04:30 06/12/17 08:58 Senna/Docusate Sodium (Senokot-S) 1 tab BID PO 06/12/17 09:00 06/13/17 09:00 Lanolin 1 applic 1 applic BEDSIDE MEDICATION PRN TOP BEDSIDE FOR AMADO TO NIPPLES 06/12/17 04:30 Oxytocin/Lactated Ringer's 500 ml @ 0 mls/hr ONCE PRN IV For Hemorrhage Management 06/12/17 04:30 Methylergonovine Maleate (Methergine) 0.2 mg ONCE PRN IM VAGINAL BLEEDING 06/12/17 04:30 Carboprost Tromethamine (Hemabate) 250 mcg ONCE PRN IM VAGINAL BLEEDING 06/12/17 04:30 Misoprostol (Cytotec) 1,000 mcg ONCE PRN [place] VAGINAL BLEEDING 06/12/17 04:30 Oxycodone/ Acetaminophen (Percocet (5/ 325)) 1 tab Q4H PRN PO PAIN LEVEL 4-6 06/13/17 03:55 Oxycodone/ Acetaminophen 2 tab 2 tab Q4H PRN PO PAIN LEVEL 7-10 06/13/17 03:55 Cefazolin Sodium/ Dextrose (Ancef 2 Gm/50 ml (Pmx)) 50 ml @ 100 mls/hr Q8H IVPB 06/12/17 11:00 06/13/17 03:29 DC 06/13/17 03:30 Acetaminophen 325 mg 325 mg Q4H PRN PO ELEVATED TEMPERATURE 06/12/17 07:00 Lactated Ringer's (Lr) 1,000 ml @ 120 mls/hr Q8H20M IV 06/12/17 10:00 06/12/17 18:08 Influenza Virus Vaccine (Fluzone) 0.5 ml ONCE ONCE IM* 06/13/17 09:00 06/13/17 09:01 DC New born is doing well, Breast feeding HUNTER PRADO MD Jun 13, 2017 10:33
[2017-06-13 12:43] VITALS: BP 108/72; PULSE 99; RESP 16
[2017-06-13 16:39] VITALS: BP 95/51; PULSE 87; RESP 16
[2017-06-13 20:00] VITALS: BP 113/66; PULSE 85; RESP 17
[2017-06-14] MEDS: IBUPROFEN 600 MG TAB PO SCH ×4 (00:23→17:40)
[2017-06-14 04:00] VITALS: BP 112/70; PULSE 75; RESP 17
[2017-06-14 08:10] VITALS: BP 115/58; PULSE 69; RESP 20
[2017-06-14] MEDS: SENNA/DOCUSATE NA (8.6MG/50MG) TAB PO SCH ×2 (09:22→21:04)
[2017-06-14 16:00] VITALS: BP 109/67; PULSE 64; RESP 20
--- NOTE | 2017-06-14 17:13 | QN ---
Documentation Comment pt doing well pod2 vss exam wnl a/p pod 2 continue care PRATIMA WILKERSON MD Jun 14, 2017 17:13
[2017-06-14] MEDS: LACTATED RINGER'S 1,000 ML IV SCH ×2 (19:29→19:30)
[2017-06-15] MEDS: IBUPROFEN 600 MG TAB PO SCH ×3 (00:03→12:49)
[2017-06-15 03:15] VITALS: BP 113/76; PULSE 82; RESP 19
[2017-06-15] MEDS: LACTATED RINGER'S 1,000 ML IV SCH (04:40)
[2017-06-15 08:00] VITALS: BP 114/75; PULSE 85; RESP 20
[2017-06-15] MEDS: SENNA/DOCUSATE NA (8.6MG/50MG) TAB PO SCH (09:01)
--- NOTE | 2017-06-15 12:00 | PD.PPDC ---
[employer] Discharge Instruction Condition Patient Condition: Fair Diet Diet: Resume Regular Diet Activity/Restrictions Activity: Normal Activity May Shower Restrictions: No Exercising No Lifting No Driving No Sexual Activity Nothing in the Vagina No [place] No Tampons, douche Wound/Drain Care Instructions Wound/Drain Care Instructions: Remove Steri Strips in 2 weeks Follow-up Follow-up with Physician: 2, Week/Weeks Return to clinic for [employer] Instructions: Fever greater than 101 Chills Worsening abdominal pain Excessive Vaginal Bleeding More than 2 pads per hour Unable to tolerate diet OB Instructions: Breast Tenderness Depression Blurried Vision Headache Surgical Instructions: Incisional Drainage Incisional Redness ELIZABETH PATHAK MD Jun 15, 2017 12:00
--- NOTE | 2017-06-15 12:06 | QN ---
Documentation Comment progress note pod 3 patient seen and evaluated no complaints vs stable, afebrile abd c/d/i no distention, nt, uterine fundus below umbillicus extremity no edema no calf tenderness a/ sp cs pod 3 doing well p/ discharge home today d/u office in 2 weeks ELIZABETH PATHAK MD Jun 15, 2017 12:06
--- NOTE | 2017-06-15 13:44 | DS ---
DATE OF ADMISSION: 06/11/2017 DATE OF DISCHARGE: 06/15/2017 PRIMARY DIAGNOSIS: A 31-year-old 1, para 0, intrauterine at term in labor, arrest in dilatation. POSTOPERATIVE DIAGNOSIS: A 31-year-old 1, para 0, intrauterine at term in labor, arrest in dilatation. PROCEDURE: Primary low transverse delivery. CONDITION ON DISCHARGE: Stable. ACTIVITY: None per vagina, no heavy lifting x6 weeks. DIET: Regular. MEDICATIONS ON DISCHARGE: 1. Motrin. 2. Percocet. 3. Iron. 4. Colace. HOSPITAL COURSE: Ms. Davis is a 31-year-old 1, para 1, status post primary low transver se delivery on 06/12/2017. She had a viable female, 8 and 9 respectively at 1 and 5 minutes, weight 8 pounds 7 ounces. She had an uneventful postop day 1, 2, and 3. Her incision is c lean, dry, and intact. She is ambulating, tolerating diet, positive flatulence, positive bowel move ment. She will be discharged home today and follow up in the office in 2 weeks for /post OP care. Dictated By: ELIZABETH LAOGS/CR Conf#: [id number] DID#: [id number]
== END 2017-06-15 15:04 | disposition home or self-care (01) | DRG 766 ==
LOC: L-D 08:26 → OBT 08:26 → L-D 08:53 → OBT 08:58 → L-D 06-12 03:22 → PP1 06-12 09:50
PROVIDERS: ADMIT Obstetrics & Gynecology; ATTEND Obstetrics & Gynecology
PROC: 10D00Z1 Extraction of Products of Conception, Low, Open Approach (ICD-10-PCS; principal; 2017-06-12 03:30)
DX: O62.0 Primary inadequate contractions (principal); Z37.0 Single live birth; Z3A.39 39 weeks gestation of pregnancy
CPT/HCPCS: 62319; 76815; 85025; 85610; 85730; 86592; 86900; 86901; 90686; 99464; G0463; J0690; J1100; J1885; J2210; J2274; J2370; J2405; J2590; J3010; J7120